=== PATIENT | male | born 1960 | race Caucasian/White ===

== ENCOUNTER 2017-10-07 18:40 | Emergency (ER) | payer BC ==
--- NOTE | 2017-10-07 19:33 | Emergency Department Record ---
History of Present Illness - General Chief complaint: Lower Extremity Pain Stated complaint: RT INNER THIGH BRUISED Time Seen by Provider: 10/07/17 19:27 Source: Patient Mode of Arrival: Ambulatory Limitations: No limitations - History of Present Illness Initial comments: 57 yo male presents to ED for evaluation of bruising and pain to the right inner thigh after playing golf 48 hours ago, reports that he felt that he strained his groin, but noticed significant bruising to the area today. Patient reports that he does take Brlinta for anticoagulation following an NC previously. Patient denies numbness, tingling, or weakness to the lower extremity. Patient also reports that he has been ambulating well without difficulty. MD Complaint: Extremity pain, Extremity swelling Onset/Timin -: Days(s) Location: Right, Thigh History of Same: No -: Yes Myalgia Radiation: Proximal Severity scale (1-10): 3 Quality: Aching Consistency: Constant Improves with: Nothing Worsens with: Walking Associated Symptoms: Other - Related Data Home Medications Medication Instructions Recorded Confirmed Last Taken Aspirin [Aspir-Low] 81 mg PO DAILY 10/07/17 10/07/17 10/07/17 Allergies Allergy/AdvReac Type Severity Reaction Status Date / Time No Known Drug Allergies Allergy Verified 10/07/17 18:45 Travel Screening - Travel/Exposure Within Last 30 Days Have you traveled within the last 30 days?: No - Travel Symptoms Symptom Screening: None Review of Systems Constitutional: Denies: Chills, Fever, Malaise, Night sweats Eyes: Denies: Eye discharge, Eye pain ENT: Denies: Congestion, Ear pain Respiratory: Denies: Cough, Dyspnea Cardiovascular: Denies: Chest pain, Dyspnea on exertion Endocrine: Denies: Fatigue, Heat or cold intolerance Gastrointestinal: Denies: Abdominal pain, Nausea, Vomiting Genitourinary: Denies: Incontinence, Retention Musculoskeletal: Reports: Myalgia. Denies: Arthralgia, Back pain, Gout, Joint swelling Skin: Reports: Bruising. Denies: Change in color, Change in hair/nails Neurological: Denies: Abnormal gait, Confusion, Headache, Seizure Psychiatric: Denies: Anxiety Hematological/Lymphatic: Reports: Easy bleeding, Easy bruising. Denies: Anemia , Blood Clots Past Medical History - SOCIAL HISTORY Smoking Status: Former smoker - RESPIRATORY Hx Respiratory Disorders: Yes Hx Sleep Apnea: Yes Hx of CPAP: Yes - CARDIOVASCULAR Hx Cardio Disorders: Yes Hx Heart Attack: Yes (stents x2) Hx Hypertension: Yes - NEURO Hx Neuro Disorders: No - GI Hx GI Disorders: No - Hx Genitourinary Disorders: No - ENDOCRINE Hx Endocrine Disorders: No - MUSCULOSKELETAL Hx Musculoskeletal Disorders: Yes Comment:: Sciatic nerve problems - PSYCH Hx Psych Problems: No - HEMATOLOGY/ONCOLOGY Hx Hematology/Oncology Disorders: No Family Medical History Any Significant Family History?: Yes Hx Diabetes: Mother Hx Heart Disease: Father, Mother Hx Kidney Disease: Father *Kidney Comment: stones Hx Stroke: Father Physical Exam - General General Appearance: Alert, Oriented x3, Cooperative, No acute distress Limitations: No limitations - Head Head exam: Atraumatic, Normocephalic, Normal inspection Head exam detail: negative: Abrasion, Contusion, Joy's sign, General tenderness, Hematoma, Laceration - Eye Eye exam: Normal appearance. negative: Conjunctival injection, Periorbital swelling, Periorbital tenderness, Scleral icterus - ENT Ear exam: negative: Auricular hematoma, Auricular trauma Nasal Exam: negative: Active bleeding, Discharge, Dried blood, Foreign body Mouth exam: negative: Drooling, Laceration, Muffled voice, Tongue elevation - Neck Neck exam: Normal inspection. negative: Meningismus, Tenderness - Respiratory Respiratory exam: Normal lung sounds bilaterally. negative: Rales, Respiratory distress, Rhonchi, Stridor - Cardiovascular Cardiovascular Exam: Regular rate, Normal rhythm, Normal heart sounds - GI/Abdominal GI/Abdominal exam: Soft. negative: Rebound, Rigid, Tenderness - Rectal Rectal exam: Deferred - exam: Deferred - Extremities Extremities exam: Tenderness, Other (Ecchymosis and mild inuration c/w hematoma is present extending from the groind medially of the right thigh to the proximal knee region. Strong DPP present, compartments of the thigh and lower extremity are soft on examination.). negative: Calf tenderness, Pedal edema - Back Back exam: Denies: CVA tenderness (R), CVA tenderness (L) - Neurological Neurological exam: Alert, Normal gait, Oriented X3 - Psychiatric Psychiatric exam: Normal affect, Normal mood - Skin Skin exam: Normal color. negative: Abrasion Type of lesion: negative: abrasion Course Vital Signs 10/07/17 18:49 Temperature 98.3 F Pulse Rate 74 Respiratory 16 Rate Blood Pressure 116/91 Pulse Ox 98 - Reevaluation(s) Reevaluation #1: 10/07/17 20:06 Laboratory studies were reviewed: Hgb 13.2 GDR > 60. Patient and his were updated on all results, just returning from CT imaging at this time. Reevaluation #2: 10/07/17 20:46 CT Right Lower Extremity: Hematoma of the Vastus Medialis muscle with 4.3x1.6 cm ill-defined hematoma present. Patient was updated on all results and reassessed. No clinical evidence for compartment syndrome is present on examination. Patient appears stable for discharge with instructions restricted activity for another 48 hours with gradual return to daily activity over the next 1 week. Patient appears stable for discharge at this time. Medical Decision Making - Lab Data Result diagrams: 10/07/17 19:45 10/07/17 19:43 Disposition Disposition: Discharge Clinical Impression: Thigh hematoma Qualifiers: Encounter type: initial encounter Laterality: left Qualified Code(s): S70.12XA - Contusion of left thigh, initial encounter Disposition: Home, Self-Care Condition: (2) Stable Instructions: Hematoma (ED) Additional Instructions: Return to ED if your symptoms worsen or if you have any concerns. Follow-up with your family doctor in 3-5 days as directed. No strenuous activity for 48 hours, then gradual return to normal activity over the next 1 week. Forms: Patient Portal Access Time of Disposition: 20:49 Quality - Quality Measures Quality Measures: N/A - Blood Pressure Screening Does Patient Have Any of the Following: Active Dx of HTN Blood Pressure Classification: Hypertensive Reading Systolic Measurement: 116 Diastolic Measurement: 91 Screening for High Blood Pressure: Patient Exclusion, Hx of HTN [[id number]]
[2017-10-07 19:48] LABS: BASO % 0.3 % (0-6); GRAN % 67.7 % (47-80); HEMATOCRIT 41.7 % (42.0-52.0); HEMOGLOBIN 13.2 gm/dl (14.0-18.0); LYMPH % 19.5 % (16-45); MEAN CELL VOLUME 101.5 fl (81-97); MEAN CORPUSCULAR HEMOGLOBIN 32.1 pg (27-33); MEAN CORPUSCULAR HGB CONC 31.7 g/dl (32-36); MEAN PLATELET VOLUME 9.5 fl (7.4-10.4); MONO % 10.5 % (0-9); PLATELET COUNT 192 K/uL (130-400); RED BLOOD COUNT 4.11 M/uL (4.40-5.70); RED CELL DISTRIBUTION WIDTH 13.1 % (11.5-14.5); WHITE BLOOD COUNT W/O DIFF 7.1 K/uL (4.2-12.2)
[2017-10-07 19:57] LABS: BLOOD UREA NITROGEN 25 mg/dL (6-20); CREATININE 1.1 mg/dL (0.7-1.2); EST GLOMERULAR FILTRATION RATE > 60 mL/min
[2017-10-07 19:58] LABS: TOTAL PROTEIN 6.7 g/dL (6.6-8.7)
[2017-10-07 20:00] LABS: GLUCOSE,RANDOM 112 mg/dL (74-109)
[2017-10-07 20:03] LABS: ALB/GLOB RATIO 1.7 (1.1-1.8); ALBUMIN 4.2 g/dL (4.0-5.0); ALKALINE PHOSPHATASE 82 U/L (40-129); ALT/SGPT 33 U/L (<41); AST/SGOT 36 U/L (10.0-50.0)
== END 2017-10-07 21:01 | disposition home or self-care (01) ==
LOC: ER 18:40
DX: S70.12XA Contusion of left thigh, initial encounter (principal); X50.9XXA Other and unspecified overexertion or strenuous movements or postures, initial encounter; Y93.53 Activity, golf; I10 Essential (primary) hypertension; I25.2 Old myocardial infarction; Z87.891 Personal history of nicotine dependence; Z95.5 Presence of coronary angioplasty implant and graft
CPT/HCPCS: 99283; 99284; 85025; 80053; 73701; Q9967

== ENCOUNTER 2017-12-23 05:22 | Day surgery (SDC) | payer BC, OTHER ==
[2017-12-23] MEDS ORDERED: MIDAZOLAM HCL 2MG/2ML VIAL IV ONE (05:23)
[2017-12-23] MEDS ORDERED: LIDOCAINE 2% MDV (20MG/ML) 20ML VIAL IV ONE (05:23)
[2017-12-23] MEDS ORDERED: PROPOFOL 10 MG/ML VIAL IV ONE (05:23)
[2017-12-23] MEDS ORDERED: BUPIVACAINE 0.25% W/EPI MPF 30ML VIAL IVP ONE (05:23)
[2017-12-23] MEDS ORDERED: MECLIZINE 25 MG TABLET PO ONE (06:00)
[2017-12-23] MEDS ORDERED: METOCLOPRAMIDE 10 MG TABLET PO ONE (06:00)
[2017-12-23] MEDS ORDERED: FAMOTIDINE 20MG TABLET PO ONE (06:00)
[2017-12-23] MEDS ORDERED: CELECOXIB 100 MG CAPSULE PO ONE (06:00)
[2017-12-23] MEDS ORDERED: ACETAMINOPHEN 1,000 MG/100 ML BTL IV ONE (06:00)
[2017-12-23] MEDS ORDERED: HYDROCODONE/APAP 5/325MG TABLET PO PRN (09:08)
[2017-12-23] MEDS ORDERED: OXYCODONE HCL/APAP 5MG/325MG TABLET PO PRN (09:08)
[2017-12-23] MEDS ORDERED: ZOLPIDEM TARTRATE 5 MG TABLET PO PRN (09:15)
[2017-12-23] MEDS ORDERED: ONDANSETRON HCL IV 4 MG/2 ML VIAL IVP PRN (09:15)
[2017-12-23] MEDS ORDERED: AL HYDROX/MAG HYDROX 30ML UD PO PRN (09:15)
[2017-12-23] MEDS ORDERED: METOCLOPRAMIDE HCL 10 MG/2 ML VIAL IVP PRN (09:15)
[2017-12-23] MEDS ORDERED: TRAMADOL HCL 50 MG TABLET PO PRN (09:15)
[2017-12-23] MEDS ORDERED: DIPHENHYDRAMINE HCL 25 MG CAPSULE PO PRN (09:15)
[2017-12-23] MEDS ORDERED: MAGNESIUM HYDROXIDE 30 ML UDC PO PRN (09:15)
[2017-12-23] MEDS ORDERED: SENNOSIDES/DOCUSATE SODIUM UD CAPSULE PO PRN (09:15)
[2017-12-23] MEDS: RINGERS SOLUTION,LACTATED 1,000 ML IV SCH (10:29)
[2017-12-23] MEDS ORDERED: RINGERS SOLUTION,LACTATED 1,000 ML IV PRN (12:31)
--- NOTE | 2017-12-23 12:35 | Rehab Evaluation ---
Patient Information - Patient Information Diagnosis: L knee OA Ordered Treatment: PT Evaluate and Treat Status: Initial Evaluation Surgery: Yes (L TKA) Date of Surgery: 12/23/17 Past Medical/Surgical Hx: PAST MEDICAL/SURGICAL HISTORY Past Surgical History Cardiac stents x2; L knee scope L arm-pinched nerve repair; Nasal surgery; T&A PMH - Respiratory Hx Respiratory Disorders Yes Hx Sleep Apnea Yes Hx of CPAP Yes PMH - Cardiovascular Hx Cardiovascular Disorders Yes Hx Cardiac Catheterization Yes Hx Heart Attack Yes: stents x2 Hx Hypertension Yes Hx Coronary Artery Disease Yes Hx Coronary Stent Yes: x's 2 1--17 Exercise Tolerance Good PMH - Neuro Hx Neurological Disorders No PMH - GI Hx Gastrointestinal Disorders No PMH - Hx Genitourinary Disorders No PMH - Endocrine Hx Endocrine Disorders No PMH - Musculoskeletal Hx Musculoskeletal Disorders Yes Hx Arthritis Yes: left knee Comment: left knee pain PMH - Psych Hx Psychiatric Problems No PMH - Hematology/Oncology Hx Hematology/Oncology No Disorders Hx Bruising Yes: on blood thinner Premorbid Status: Detail (The patient was independent with all mobility prior to surgery.) Social History: Detail (The patient lives with spouse in a one story house with 2 steps at the enterance and no hand railings. The patient's bathroom is equipped wit a tub/shower combination with no grabs and a standard toilet. The patient has a front wheeled walker, a shower bench and a standard cane.) Precautions: [place], Fall, Other (WBAT on the L LE.) - Time With Patient Total Time Spent With Patient (Min): 30 Treatment Procedures: Detail (Initial Evaluation and gait training.) Subjective Information - Subjective Information Per Patient (The patient denies pain.) Objective Data - Mental Status Patient Orientation: Oriented x3 - Visual Perception Appears within normal limits for therapeutic activities - ROM Not within normal limits (The patient's L knee AROM was limited s/p surgery. All other LE AROM was WNL.) - Strength/Tone Not within normal limits (The patient's L LE strength was not tested secondary s /p surgery but was functional ie: pt was able to complete a SLR. The patient's R LE strength was WFL.) - Bed Mobility Independent (The patient was independent with supine to and from sit transfer) - Transfers Independent (The patient was independent with sit to and from stand transfer with verbal cues to push up from the surface.) - Balance Balance Sitting: Good Balance Standing: Good - Gait Detail (The patient ambulated with front wheeled walker WBAT on the L LE with supervision for safety a distance of 200 feet x 1.) Therapy Assessment - Therapy Assessment Detail (The patient was independent with bed mobilty, transfers and supervision for safety with ambulation. Feel the patient will progress well with mobility. The patient returned to bed with CPM, ice pack and drain in place and call light within reach.) Problem List - Problem List Physical Therapy Problem List: Detail (1)Decreased L LE AROM and strength as to be expected following surgery 2) Non ambulatory on stairs) Goals - Goals Physical Therapy Goals: 1) The patient will be independent with HEP of TKA exercises. 2) The patient will ambulate with supervision for safety on stairs using proper technique. Prognosis - Prognosis Good Plan - Plan Physical Therapy Plan: PT for 1-2 sessions for gait training on stairs and instruction in HEP.
--- NOTE | 2017-12-23 13:10 | Operative Note ---
DATE OF SURGERY: 12/23/2017 Surgeon: Landen Aguilar DO PREOPERATIVE DIAGNOSIS: Primary osteoarthritis of the left knee. POSTOPERATIVE DIAGNOSIS: Primary osteoarthritis of the left knee. OPERATION: Left total knee arthroplasty. DESCRIPTION OF PROCEDURE: This 57-year-old male was taken to the operating room and placed in the supine position on the operating room table. Spinal anesthesia was induced. The left lower extremity was elevated. It was prepped with Hibiclens and draped in the usual sterile fashion and then it was exsanguinated and the tourniquet inflated to 300 mmHg. All scrub personnel wore personal isolation suits. An anterior longitudinal midline incision was made followed by a medial parapatellar arthrotomy incision. An intracondylar drill hole was made for the intramedullary alignment kelley and a 6-degree valgus 9 mm cut was made in the distal femur. The wafer of bone was removed. Sizing jig was affixed and size 67.5 was seen to be the appropriate size. The 4-in-1 cutting block was then pinned in 3 degrees of external rotation. The appropriate cuts were made. We then directed our attention to the proximal tibia, and an extramedullary alignment guide was used to cut the proximal tibia referencing a 10 mm cut off the lateral tibial plateau. After the appropriate alignment had been assured, a 3-degree posterior slope cut was made and the wafer of bone was removed. Remnants of the menisci and osteophytes were removed from the posterior aspect of the joint. Soft tissue balancing was checked and found to be satisfactory. The tibia was sized to a 75 and the stem punch was used. The wound copiously irrigated with pulse lavage, lactated Ringer's solution. The patella was subsequently cut and restored to anatomic height with a 34 x 10 mm patella. The remainder of the trial components were inserted with an 11 mm spacer seen to be the appropriate size. It was taken through full range of motion with excellent stability. All trial components were then removed and the wound again copiously irrigated with lactated Ringer's solution. Exparel was injected in the posterior, medial, and lateral corners of the joint and after insertion of the final components, the remainder was injected into the periosteum and joint capsule, the proximal tibia and distal femur. All bony surfaces were dried and excess cement removed after the insertion of each component. The tibial baseplate was placed first followed by the insertion of the tibial bearing, femoral component, and finally the patella. Once the cement had hardened, the knee was again taken through range of motion and found to be stable. A drain was placed through a separate stab incision, and the arthrotomy incision was then closed with a #2 Vicryl. The subcutaneous tissue was closed with 0 Vicryl and the skin was stapled. Sterile dressings applied with a Polar Care. The patient was taken to the recovery room in satisfactory condition. GROSS PATHOLOGY: This patient had severe osteoarthritis of the medial compartment and patellofemoral joint, full-thickness articular cartilage loss noted in the medial compartment on both sides of the joint with grade 2 changes noted laterally, grade 4 changes noted at the patellofemoral joint. Final components inserted were a [employer] size 67.5 cruciate retaining femur, a 75 tibial baseplate, an 11 mm anterior stabilized E1 bearing, and a 34 x 10 mm patella. CC: Dayana Mota MD MTDD
[2017-12-23] MEDS: HYDROCODONE/APAP 5/325MG TABLET PO PRN ×2 (14:17→22:24)
[2017-12-23] MEDS: CEFAZOLIN 2 Gram 2 GM/50 ML BAG IVPB SCH ×2 (14:19→22:19)
[2017-12-23] MEDS: HYDROMORPHONE HCL 2 MG/ML VIAL IV PRN ×4 (15:12→17:57)
[2017-12-23] MEDS: TRAMADOL HCL 50 MG TABLET PO PRN (19:15)
[2017-12-23] MEDS: BRILINTA 90 MG PO SCH (22:25)
[2017-12-24] MEDS: HYDROMORPHONE HCL 2 MG/ML VIAL IV PRN ×2 (00:32→01:38)
[2017-12-24] MEDS: RINGERS SOLUTION,LACTATED 1,000 ML IV SCH (01:47)
[2017-12-24] MEDS: CEFAZOLIN 2 Gram 2 GM/50 ML BAG IVPB SCH (06:15)
[2017-12-24] MEDS: OXYCODONE HCL/APAP 5MG/325MG TABLET PO PRN ×2 (06:25→12:27)
[2017-12-24 06:55] LABS: HEMATOCRIT 37.1 % (42.0-52.0); HEMOGLOBIN 12.1 gm/dl (14.0-18.0); MEAN CELL VOLUME 100.8 fl (81-97); MEAN CORPUSCULAR HGB CONC 32.6 g/dl (32-36); MEAN PLATELET VOLUME 9.6 fl (7.4-10.4); PLATELET COUNT 206 K/uL (130-400); RED BLOOD COUNT 3.68 M/uL (4.40-5.70); WHITE BLOOD COUNT W/O DIFF 10.5 K/uL (4.2-12.2)
[2017-12-24 07:09] LABS: MEAN CORPUSCULAR HEMOGLOBIN 32.8 pg (27-33)
[2017-12-24] MEDS: HYDROCODONE/APAP 5/325MG TABLET PO PRN (08:49)
[2017-12-24] MEDS ORDERED: ACETAMINOPHEN 325 MG TAB PO PRN (09:15)
[2017-12-24] MEDS: BRILINTA 90 MG PO SCH (09:51)
[2017-12-24] MEDS ORDERED: PATIENT OWN MED: ASPIRIN 81 MG PO SCH (10:00)
[2017-12-24] MEDS ORDERED: CELECOXIB 100 MG CAPSULE PO SCH (10:00)
[2017-12-24] MEDS ORDERED: CRESTOR 5 MG PO SCH (10:00)
[2017-12-24] MEDS ORDERED: METOPROLOL SUCCINATE 25 MG PO SCH (10:00)
--- NOTE | 2017-12-24 10:27 | Physical Therapy Tx Note ---
Physical Therapy Tx Note - Treatment Note Tolerated: Good Total Time Spent With Patient: 25 Physical Therapy Tx Note: Detail (The patient was in bed when PT arrived. The patient ambulated with front wheeled walker a distance of 120 feet x 1 independently WBAT on L LE. The patient ambulated on 3 steps with use of folded walker and railing using proper technique with supervision for safety. The patient's HEP was reviewed and included the following:SLR, quad sets, gluteal sets, hamstring sets, heel slides. The patient had difficulty isolated quad and completing SLR. The patient was instructed to use strap for SLR.) Physical Therapy Problem List: Detail (1)Decreased L LE AROM and strength as to be expected following surgery 2) Non ambulatory on stairs) Physical Therapy Goals: GOALS MET: 1) The patient will be independent with HEP of TKA exercises. 2) The patient will ambulate with supervision for safety on stairs using proper technique. Physical Therapy Plan: All inpatient PT goals have been met. The patient is discharged from inpatient PT.
[2017-12-24] MEDS: TRAMADOL HCL 50 MG TABLET PO PRN (10:43)
--- NOTE | 2017-12-24 11:23 | Rehab Evaluation ---
Patient Information - Patient Information Diagnosis: L knee OA Ordered Treatment: OT Evaluate and Treat Status: Initial Evaluation Surgery: Yes (L TKA) Date of Surgery: 12/23/17 Past Medical/Surgical Hx: PAST MEDICAL/SURGICAL HISTORY Past Surgical History Cardiac stents x2; L knee scope L arm-pinched nerve repair; Nasal surgery; T&A PMH - Respiratory Hx Respiratory Disorders Yes Hx Sleep Apnea Yes Hx of CPAP Yes PMH - Cardiovascular Hx Cardiovascular Disorders Yes Hx Cardiac Catheterization Yes Hx Heart Attack Yes: stents x2 Hx Hypertension Yes Hx Coronary Artery Disease Yes Hx Coronary Stent Yes: x's 2 --17 Exercise Tolerance Good PMH - Neuro Hx Neurological Disorders No PMH - GI Hx Gastrointestinal Disorders No PMH - Hx Genitourinary Disorders No PMH - Endocrine Hx Endocrine Disorders No PMH - Musculoskeletal Hx Musculoskeletal Disorders Yes Hx Arthritis Yes: left knee Comment: left knee pain PMH - Psych Hx Psychiatric Problems No PMH - Hematology/Oncology Hx Hematology/Oncology No Disorders Hx Bruising Yes: on blood thinner Premorbid Status: Detail (The patient was independent with all mobility prior to surgery. Pt and spouse share IADLs.) Social History: Detail (The patient lives with spouse in a one story house with 2 steps at the entrance and no hand railings. The patient's bathroom is equipped wit a tub/shower combination with several grab bars and a seat and a standard toilet with a riser and handles. The patient has a front wheeled walker , a shower bench, a greens or grounds superintendent, sock aid and a standard cane.) Precautions: [place], Fall, Other (WBAT on the L LE.) - Time With Patient Total Time Spent With Patient (Min): 45 Treatment Procedures: Detail (OT eval low complexity) Subjective Information - Subjective Information Per Patient Objective Data - Pain Pain Present: Yes (06/19) - Mental Status Patient Orientation: Oriented x3 - Visual Perception Appears within normal limits for therapeutic activities - ROM Within normal limits (Rajesh UE AROM WNL) - Strength/Tone Within normal limits (Rajesh UE strength WNL) - Coordination Appears within normal limits for therapeutic activities - Bed Mobility Independent (Ind with supine to sit) - Transfers Independent - Balance Balance Sitting: Good Balance Standing: Good - Sensation Intact - Gait Detail (Pt ambulating in room with 2 wheeled walker Indly.) - ADL's/IADL's Detail (Pt educated and demonstrates learning of modified LE dressing techniques including doffing slipper socks and underwear and donning underwear, pants and slip on shoes. Reviewed kitchen and shower safety and modification, pt and spouse verbalize understanding.) Therapy Assessment - Therapy Assessment Detail (Pt is safe and Ind with modified LE dressing techniques.) Problem List - Problem List Physical Therapy Problem List: Detail (1)Decreased L LE AROM and strength as to be expected following surgery 2) Non ambulatory on stairs) Occupational Therapy Problem List: Detail (No current IP OT problems identified. ) Goals - Goals Physical Therapy Goals: GOALS MET: 1) The patient will be independent with HEP of TKA exercises. 2) The patient will ambulate with supervision for safety on stairs using proper technique. Occupational Therapy Goals: No current IP OT goals identified. Prognosis - Prognosis Good Plan - Plan Physical Therapy Plan: All inpatient PT goals have been met. The patient is discharged from inpatient PT. Occupational Therapy Plan: No further IP OT recommended. Thank you for this referral.
--- NOTE | 2017-12-25 10:40 | Discharge Summary ---
DATE OF ADMISSION: 12/23/2017 DATE OF DISCHARGE: 12/24/2017 ADMITTING DIAGNOSIS: Osteoarthritis of the left knee. DISCHARGE DIAGNOSIS: Osteoarthritis of the left knee. OPERATIVE PROCEDURE: Left total knee arthroplasty. DESCRIPTION: This 57-year-old male was admitted to the hospital for elective total knee arthroplasty and tolerated the operative procedure well. Drain was removed the first postoperative day. He was up and walking well with a walker and physical therapy and was cleared for discharge. He showed no signs of complication during the course of his hospitalization. He will be discharged home. He was instructed to use his LISA hose during the day and remove them at night. He will have outpatient PT. he will continue on his Brilinta and baby aspirin as he had been taking prior to admission. He was given a prescription for Hume 5/325 mg, #40, 1 every 4 hours as necessary for pain and tramadol 50 mg, #60, 1-2 every 6 hours as necessary for pain. Routine wound care instructions were given. Should he have any problems prior to being seen, he was instructed to call my office. ADY
== END 2017-12-24 13:30 | disposition home or self-care (01) ==
LOC: SUR 05:22 → MEDSURG 09:27 → SUR 12-24 13:30
PROVIDERS: ATTEND Orthopaedic Surgery
DX: M17.12 Unilateral primary osteoarthritis, left knee (principal); I10 Essential (primary) hypertension; E78.00 Pure hypercholesterolemia, unspecified; Z79.01 Long term (current) use of anticoagulants; Z95.5 Presence of coronary angioplasty implant and graft
CPT/HCPCS: 76942; 85025; 97110; 97530; J7120